=== PATIENT | female | born 1950 | race American Indian/Alaskan Native ===

== ENCOUNTER 2017-03-08 13:51 | Emergency (ER) | payer OTHER ==
[2017-03-08 13:52] VITALS: BMI 28.4
[2017-03-08 13:57] VITALS: TEMP 97.8
[2017-03-08] MEDS ORDERED: Albuterol-Ipratrop 3 mg / 0.5 (3 ml) UD ONE (15:29)
[2017-03-08] MEDS: Albuterol-Ipratrop 3 mg / 0.5 (3 ml) UD INH STA ×2 (15:52→16:54)
[2017-03-08 16:09] LABS: BASO # 0.1 K/uL (0.0-0.2); BASO % 1.2 % (0.0-2.0); EOS # 1.1 K/uL (0.0-0.7); EOS % 9.8 % (0.0-4.0); HEMATOCRIT 43.8 % (34.0-47.0); LYMPH # 3.2 K/uL (1.0-4.3); LYMPH % 29.5 % (20.0-40.0); MEAN CELL VOLUME 91.8 fL (81.0-99.0); MEAN CORPUSCULAR HEMOGLOBIN 30.9 pg (27.0-31.0); MEAN CORPUSCULAR HGB CONC 33.6 g/dL (33.0-37.0); MEAN PLATELET VOLUME 8.9 fL (7.2-11.7); MONO # 0.7 K/uL (0.0-0.8); MONO % 6.6 % (0.0-10.0); NRBC % 0.2 % (0.0-2.0); RED CELL DISTRIBUTION WIDTH 14.1 % (11.5-14.5)
[2017-03-08 16:12] VITALS: RESP 18
[2017-03-08 16:25] LABS: CHLORIDE 102 mmol/L (98-107)
[2017-03-08 16:26] LABS: POTASSIUM 3.4 mmol/L (3.6-5.2); SODIUM 135 mmol/L (132-148)
[2017-03-08 16:28] LABS: GFR AFRICAN-AMERICAN > 60
[2017-03-08 16:29] LABS: ALB/GLOB RATIO 1.6 (1.0-2.1); ALKALINE PHOSPHATASE 106 U/L (38-126); ALT/SGPT 28 U/L (9-52); AST/SGOT 26 U/L (14-36); BILIRUBIN,TOTAL 0.7 mg/dL (0.2-1.3); BLOOD UREA NITROGEN 5 mg/dL (7-17); CALCIUM 8.9 mg/dl (8.6-10.4); CARBON DIOXIDE 22 mmol/L (22-30); GLUCOSE,RANDOM 94 mg/dL (65-105); TOTAL PROTEIN 6.5 g/dL (6.3-8.3)
--- NOTE | 2017-03-08 16:44 | C.PDOC ---
History Of Present Illness 66 y/o female presents to ED for evaluation of dry non-productive cough for "many years" and shortness of breath. Notes that she recently immigrated from [place] 4 months ago, currently living with daughter. Otherwise, denies chest pain, fever, chills, or lower extremity pain/swelling. Time Seen by Provider: 03/08/17 14:38 Chief Complaint (Nursing): Shortness Of Breath History Per: Patient History/Exam Limitations: no limitations Onset/Duration Of Symptoms: Days Current Symptoms Are (Timing): Still Present Exacerbating Factor(s): Coughing Current Respiratory Medications: See Home Med List Severity: None Pain Scale Rating Of: 0 Associated Symptoms: Productive Cough. denies: Fever, Chills, Sweating, Chest Pain, Bloody Cough, Heart Racing, Leg/Calf Pain, Ankle/Leg Swelling, Dizziness, Light-headedness, Anxiety, Tingling In Hands Or Face, Musle Spasms In Hands Or Feet Recent travel outside of the [place]: No Additional History Per: Patient Past Medical History Reviewed: Historical Data, Nursing Documentation, Vital Signs Vital Signs: Last Vital Signs Temp 97.8 F 03/08/17 13:55 Pulse 89 03/08/17 17:31 Resp 18 03/08/17 17:31 BP 105/69 03/08/17 17:31 Pulse Ox 93 L 03/08/17 17:31 - Medical History PMH: Asthma (not sure), Gastritis, HTN Denies: Chronic Kidney Disease Surgical History: Cholecystectomy Family History: States: Unknown Family Hx - Social History Hx Tobacco Use: No Hx Alcohol Use: No Hx Substance Use: No - Immunization History Hx Tetanus Toxoid Vaccination: No Hx Influenza Vaccination: No Hx Pneumococcal Vaccination: No Review Of Systems Except As Marked, All Systems Reviewed And Found Negative. Constitutional: Negative for: Fever, Chills Cardiovascular: Negative for: Chest Pain, Palpitations, Edema Respiratory: Positive for: Cough, Shortness of Breath. Negative for: Hemoptysis , Sputum Gastrointestinal: Negative for: Nausea, Vomiting, Abdominal Pain, Diarrhea Neurological: Negative for: Headache, Dizziness Physical Exam - Physical Exam Appears: Non-toxic, No Acute Distress, Other (black elderly female) Skin: Normal Color, Warm, Dry, No Rash Head: Atraumatic, Normacephalic Eye(s): bilateral: Normal Inspection, PERRL, EOMI Oral Mucosa: Moist Neck: Normal ROM, Supple Chest: Symmetrical Cardiovascular: Rhythm Regular, No Murmur Respiratory: No Accessory Muscle Use, No Rales, Rhonchi (scant right side), No Stridor, Wheezing (scant right side) Gastrointestinal/Abdominal: Soft, No Tenderness Extremity: Normal ROM, No Pedal Edema Neurological/Psych: Oriented x3, Normal Speech ED Course And Treatment - Laboratory Results Result Diagrams: 03/08/17 16:00 03/08/17 16:00 O2 Sat by Pulse Oximetry: 99 (RA) Pulse Ox Interpretation: Normal - Other Rad CXR X-Ray: Viewed By Me, Read By Radiologist Interpretation: HISTORY: chronic cough/wheez from [place] 3 yrs ago. COMPARISON : 11/23/[address] chest without contrast 11/23/2015. TECHNIQUE: Chest PA and lateral. FINDINGS: LUNGS: Bilateral hyperinflation slightly more than before. No pneumothorax. Possible minimal left inferolateral pleural thickening and minimal fluid -not appreciated previously. No denser significant appearing consolidation. Possible minimal chronic peribronchial thickening medial aspect both lung bases. PLEURA: Small left inferolateral pleural effusion and/or thickening probable. No pneumothorax apparent. CARDIOVASCULAR: Normal. OSSEOUS STRUCTURES: No significant abnormalities. VISUALIZED UPPER ABDOMEN: Normal. OTHER FINDINGS: None. IMPRESSION: No dense consolidation. Apparent interval left inferolateral pleural thickening and/or pleural fluid -minimal -. Bilateral hyperaeration asthma and/or COPD probable. As a reminder a 8 mm pleural-based nodule was CT referenced posterior segment of the right upper lobe for which follow-up have been recommended. No follow up in our PAC system is noted. Medical Decision Making Medical Decision Making: from [place] 4 months ago, lives with daughter mostly stays @ home. demonstrates poor Albuterol Puffer technique (05/23), suggesting poor teachings MDI, Aerochamber spacer educated Home nebs for better effectiveness and less technique driven by pt. though from [place] 4 mo ago, no alarm s/s of TB, cxr neg, consider PPD/ Quantiferon Gold TB test through the Clinic. Free Clinic f/u. Disposition Doctor Will See Patient In The: Office Counseled Patient/Family Regarding: Studies Performed, Diagnosis - Disposition Referrals: [facility] [Outside] [facility] [Outside] [facility] [Outside] Disposition: HOME/ ROUTINE Disposition Time: 16:43 Condition: GOOD Additional Instructions: Pulmocort (inhaled Steroid) 1 puff twice a day Nebulizer Machine with Face Mask 2 ampules of Duoneb 4 times a day, 2-3 extra times if symptoms worsten. Albuterol puffer WITH the Aerochamber Spacer 2 puffs every 4 hours NEEDED or when OUTSIDE THE HOUSE Follow-up in our FREE Clinic in 2-3 weeks for re-eval. Prescriptions: Albuterol HFA [Ventolin HFA 90 mcg/actuation (8 g)] 200 puff IH Q4H PRN #2 puff PRN Reason: asthma Albuterol/Ipratropium [Duoneb 3 MG/3 Ml-0.5 MG/3 Ml 3 Ml] 6 ml IH Q4H PRN #100 neb PRN Reason: asthma Albuterol/Ipratropium [Duoneb 3 MG/3 Ml-0.5 MG/3 Ml 3 Ml] 6 ml IH Q4H PRN #100 neb PRN Reason: asthma Budesonide [Pulmicort Respules] 1 in IH BID #50 neb Nebulizer and Compressor [Shalimar Choice Nebulizer] 1 each MC QID #1 each Spacer, Inhalation [Aerochamber] 1 dev IH DAILY #1 dev Instructions: Asthma (ED) Forms: [facility] (Polish) - Clinical Impression Clinical Impression: Asthma - Scribe Statement The provider has reviewed the documentation as recorded by the Scribe Eleno Vásquez All medical record entries made by the Scribe were at my direction and personally dictated by me. I have reviewed the chart and agree that the record accurately reflects my personal performance of the history, physical exam, medical decision making, and the department course for this patient. I have also personally directed, reviewed, and agree with the discharge instructions and disposition.
--- NOTE | 2017-03-08 16:47 | RAD ---
HISTORY: chronic cough/wheez from [place] 3 yrs ago COMPARISON: 11/23/[address] chest without contrast 11/23/2015 TECHNIQUE: Chest PA and lateral FINDINGS: LUNGS: Bilateral hyperinflation slightly more than before. No pneumothorax. Possible minimal left inferolateral pleural thickening and minimal fluid -not appreciated previously. No denser significant appearing consolidation. Possible minimal chronic peribronchial thickening medial aspect both lung bases PLEURA: Small left inferolateral pleural effusion and/or thickening probable. No pneumothorax apparent. CARDIOVASCULAR: Normal. OSSEOUS STRUCTURES: No significant abnormalities. VISUALIZED UPPER ABDOMEN: Normal. OTHER FINDINGS: None. IMPRESSION: No dense consolidation. Apparent interval left inferolateral pleural thickening and/or pleural fluid -minimal - Bilateral hyperaeration asthma and/or COPD probable. As a reminder a 8 mm pleural-based nodule was CT referenced posterior segment of the right upper lobe for which follow-up have been recommended. No follow up in our PAC system is noted.
[2017-03-08 17:34] VITALS: BP 105/69; PULSE 89
[2017-03-08 18:04] VITALS: O2SAT 99
--- NOTE | 2017-03-10 00:48 | CARD ---
APPROVED REPORT EKG Measurement Heart [id number] <Conclusion> Normal sinus rhythm Possible Lateral infarct, age undetermined Possible Inferior infarct, age undetermined Abnormal ECG
== END 2017-03-08 17:32 | disposition home or self-care (01) ==
LOC: C.ER 13:51
DX: J45.909 Unspecified asthma, uncomplicated (principal)